=== PATIENT | female | born 1955 | race Caucasian/White ===

== ENCOUNTER 2020-05-07 09:06 | Emergency (ER) | payer MEDICAID ==
[~2020-05-07] VITALS: Ht 172.7 cm; Wt 65.8 kg
--- NOTE | 2020-05-07 09:06 | NUR ---
PT [facility] C/[facility] FROM [facility]. PT IS AAOX3, NOT IN RESPIRATORY DISTRESS, HOOKED TO MONITOR, KEPT RESTED AND COMFORTABLE. WILL CONTINUE TO MONITOR.
--- NOTE | 2020-05-07 09:09 | NUR ---
SEEN AND EXAMINED BY .
--- NOTE | 2020-05-07 09:19 | NUR ---
CALLED CASE MANAGEMENT. NOT AVAILABLE. WILL CALL BACK
--- NOTE | 2020-05-07 10:46 | NUR ---
called case management and spoke to Lyn regarding patient placement and made aware.
--- NOTE | 2020-05-07 10:58 | NUR ---
NON LINEAR EDITOR AT BEDSIDE FOR EVAL.
--- NOTE | 2020-05-07 11:00 | NUR ---
complex case manager at bedside and spoke to patient and per CM patient want's jail will call [facility] director social.
--- NOTE | 2020-05-07 11:01 | NUR ---
Spoke to fritz CORNELIUS and will talk to the patient.
--- NOTE | 2020-05-07 11:06 | NUR ---
[facility] social media assistant at bedside for eval
--- NOTE | 2020-05-07 11:24 | NUR ---
MIGUEL, HAND CLERICAL VERIFIER GAVE PT HOMELESS RESOURCE AND TAP CARD. PT WAS GIVEN FOOD BUT REFUSED PT WAS GIVEN BOTTLED WATER. HOMELESS WAIVER SIGNED.
[2020-05-07 11:26] VITALS: BP 152/89
--- NOTE | 2020-05-07 11:31 | NUR ---
career services director consult requested by for eloping from [facility]. Per MD notes, pt is a 65-year-old female who presented for concern for herpes. There is no obvious lesions on exam and she refuses to listen to response that there is no treatment. She is fixated on this issue to the point of delusion and is unable to be reasoned with. [facility] collaborated with briefcase sewer Manju Ramires who stated, pt is not appropriate for SNF placement. IMMIGRATION PATROL INSPECTOR conducted chart review and met with the pt bedside. Pt is alert and oriented x 4. Pt was residing at [facility] and left the facility stating, " they are not taking care of my herpes". Pt is ambulatory with her ADLs and IADLs. Pt has a history of Schizophrenia. Pt. denies suicidal and homicidal ideations and visual/auditory hallucinations at this time. Pt is requesting to go to the nearest Social Security office. [facility] provided pt with address to the nearest SS Office located in [place]. Pt was provided with Homeless resources related to COVID-19 and a TAP card. IMMIGRATION PATROL INSPECTOR went over the list of resources and encouraged pt to go to a health clinic for her medical concerns or to f/u with her primary care physician. Pt understood. Homeless patient waiver was signed by the pt and placed in pt's chart. LUCIAN Burciaga and notified of pt's discharge plan. [employer] Electrician is available for support as needed.
== END 2020-05-07 11:29 | disposition home or self-care (01) ==
LOC: ER 09:14
DX: Z71.1 Person with feared health complaint in whom no diagnosis is made (principal); I12.9 Hypertensive chronic kidney disease with stage 1 through stage 4 chronic kidney disease, or unspecified chronic kidney disease; N18.9 Chronic kidney disease, unspecified; F20.9 Schizophrenia, unspecified; J44.9 Chronic obstructive pulmonary disease, unspecified